=== PATIENT | female | born 1995 | race Caucasian/White ===

== ENCOUNTER 2019-10-28 14:49 | Emergency (ER) | payer BC, SELFPAY ==
[2019-10-28 14:49] VITALS: BP 143/102; PULSE 81; RESP 16; TEMP 36.6; O2SAT 100; BMI 24.0
--- NOTE | 2019-10-28 15:15 | US_ITS ---
STUDY: FIRST TRIMESTER OBSTETRICAL ULTRASOUND REASON FOR EXAM: Female, 24 years old BLEEDING- CRAMPS -X 1 HOUR TECHNIQUE: Transabdominal TECHNICAL QUALITY: Adequate. PRIOR ULTRASOUND: None. FINDINGS: There is visualization of a single gestational sac in a normal intrauterine position. The mean sac diameter (MSD) measures 4.11 cm, indicating an estimated gestational age (EGA) of 9 weeks, 6 days. The gestational sac shape is within normal limits. There is a visualized yolk sac. The yolk sac measures 3.1 mm. The placenta is non-visualized. There is visualization of a live embryo. The crown-rump length (CRL) measures 1.89 cm, indicating an estimated gestational age (EGA) of 8 weeks, 3 days. There is demonstrated cardiac activity with a heart rate of 182 bpm. The estimated gestation age (EGA) by US is 9 weeks, 1 days. The estimated date of delivery (JULIETH) by US is May 31, 2020. The uterus measures 9.0 x 8.3 x 5.5 cm. There is no demonstrated uterine fibroid. The cervix is closed. The right ovary measures 3.7 x 2.7 x 2.1 cm. A 1.8 cm right ovarian degenerated follicular cyst is present. There is no visualized right adnexal mass or complex lesion. The left ovary measures 2.0 x 1.9 x 1.6 cm. There is no left ovarian cyst. There is no visualized left adnexal mass or complex lesion. There is minimal fluid in the cul de sac. US/Transvaginal w/Preg US IMPRESSION: Live IUP at 9 weeks and 1 day by ultrasound criteria. Electronically Signed: Tee Yañez MD at 17:30 EDT , Service support ,
--- NOTE | 2019-10-28 15:17 | ED.VISSUMM ---
- ER Visit Summary Date of Service: 10/28/19 Chief Complaint: Vaginal bleeding in History of Present Illness: The patient is a 24 F presenting with vaginal bleeding. Patient is G3, P0 Ab2. She is 8 weeks . She is in town visiting from [place]. She started having vaginal bleeding and pelvic cramping approximately 1 hour ago. She states the bleeding is similar to a period. She had spotting at 5 weeks during this and had RhoGam at that time. She denies other complaints. Physical Examination: Vitals are stable. Patient is afebrile. Alert no acute distress. HEENT exam is unremarkable. Neck is supple. Lungs are clear and equal bilaterally. Heart is regular rate and rhythm. Abdomen is soft mild bilateral pelvic tenderness with no guarding or rebound. Extremities are unremarkable. Skin is warm and dry. Remainder of exam is unremarkable. Emergency Department Course and Treatment: hCG quant [id number]. Blood type A-. Pelvic ultrasound shows Live IUP at 9 weeks and 1 day by ultrasound criteria. On pelvic exam she has minimal blood in the vaginal vault. This is cleared with a cotton swab. There is no active bleeding. Cervix is closed. Discussed with her [employer], Dr. Reed. She will be given RhoGam. She is advised pelvic rest. Advised to follow-up with her [employer]. Advised to return to the ED for worsening complaints. Disposition: Discharged home Impression: Threatened This note was generated with [employer] software. It may contain incorrect words, spelling, and punctuation that were not noted in review of the chart prior to signing ED Disposition - Plan for ED Patient: Instructions: ED Possible Miscarriage Threatened Referrals: Care Physician,No Primary [Primary Care Provider] -
--- NOTE | 2019-10-28 18:03 | ED.DEP ---
ED Disposition - Plan for ED Patient: Instructions: ED Possible Miscarriage Threatened Referrals: Care Physician,No Primary [Primary Care Provider] -
[2019-10-28 19:09] VITALS: BP 104/68; PULSE 59; RESP 18
--- NOTE | 2019-10-28 19:21 | NURSING ---
patient requested to leave after rhogam injection. has had same injection in past.
== END 2019-10-28 19:22 | disposition home or self-care (01) ==
PROVIDERS: Emergency Provider Emergency Medicine
DX: O20.0 Threatened abortion (principal); Z3A.08 8 weeks gestation of pregnancy
CPT/HCPCS: 76817; 84702; 86900; 86901; 90384; 96372; 99283; J2790